=== PATIENT | female | born 1990 | race Hispanic/Latino ===

== ENCOUNTER 2020-11-07 18:12 | Observation (INO) | payer MEDICARE, OTHER ==
--- NOTE | 2020-11-07 19:21 | Emergency Department Report ---
ED Chest Pain HPI - General Chief Complaint: Chest Pain Stated Complaint: SHORTNESS OF BREATH/CHEST PAIN Time Seen by Provider: 11/07/20 18:24 Source: EMS Mode of arrival: Stretcher Limitations: No Limitations - History of Present Illness Initial Comments: 30-year-old female with history of DM2 which is diet controlled and history of cervical cancer in the past presents via EMS for chief complaint of chest pain. According to the EMS report, the patient's son noticed that the patient was repeating questions multiple times. The patient became very confused and with altered mental status and called her mother and said "I think I am going to ". The patient reported that she had chest pain and shortness of breath with nausea and dizziness. This all came on acutely about 3 hours ago. Patient also reports that she has had right calf pain. At the present time she does not have chest pain but feels slightly short of breath. She denies any fever, headache, neck pain, neck stiffness, focal weakness, sensory changes, back pain, dysuria, or any other complaints. - Related Data Allergies Allergy/AdvReac Type Severity Reaction Status Date / Time iodine Allergy Unknown Verified 11/07/20 18:48 Sulfa (Sulfonamide Allergy Unknown Verified 11/07/20 18:48 Antibiotics) Heart Score - HEART Score History: Slightly suspicious EKG: Normal Age: < 45 Risk factors: No known risk factors Troponin: < normal limit HEART Score: 0 - EKG Read Time Time EKG Completed: 19:13 EKG Read Time: 19:17 ED Review of Systems ROS: Stated complaint: SHORTNESS OF BREATH/CHEST PAIN Other details as noted in HPI Constitutional: denies: chills, fever Eyes: denies: eye pain, vision change ENT: denies: throat pain, congestion Respiratory: shortness of breath. denies: cough Cardiovascular: chest pain. denies: palpitations Gastrointestinal: denies: abdominal pain, nausea, vomiting Genitourinary: denies: dysuria, frequency Musculoskeletal: denies: back pain, joint swelling Skin: denies: rash, lesions Neurological: confusion. denies: headache, weakness, numbness, paresthesias Psychiatric: anxiety ED Past Medical Hx - Past Medical History Previous Medical History?: Yes Hx Diabetes: Yes (insulin dependent) Hx of Cancer: Yes (cervical 2009 stage 3) Hx Psychiatric Treatment: Yes (depression anxiety) - Surgical History Past Surgical History?: Yes Additional Surgical History: c section 2006, hysterectomy 2009, hernia repair 2015 - Social History Smoking Status: Former Smoker ED Physical Exam - General Limitations: No Limitations - Other Other exam information: GENERAL: Well developed and well nourished. Extremely somnolent but arousable to voice. Oriented x4. HEAD: Normocephalic. No obvious signs of trauma. ENT: Dry mucous membranes. EYES: Extraocular movements are intact. Pupils are equal round and reactive to light bilaterally NECK: Supple. Full ROM is intact. Trachea is midline. LUNGS: Tachypneic. Equal chest rise bilaterally. Coarse breath sounds throughout without discrete rales, rhonchi, or wheezes CARDIOVASCULAR: Tachycardic but with regular rhythm.. No murmurs or rubs. VASCULAR: Cap refill < 2 seconds ABDOMEN: Abdomen is soft and nondistended. There is no significant tenderness, guarding or rebound. SKIN: Skin is warm and dry NEURO: Patient is extremely somnolent but arousable to voice. She is oriented x4. director learning services II-XII grossly intact. No focal deficits. Normal motor and sensory exam throughout. Normal speech. MUSCULOSKELETAL: No obvious deformities. No significant tenderness. Normal ROM throughout. BACK/SPINE: No midline tenderness or step-offs of the C/T/L spine. There is left sided CVA tenderness. ED Course Vital Signs 11/07/20 11/07/20 11/07/20 18:38 18:43 18:45 Temperature 99.2 F Pulse Rate 83 79 Respiratory 24 28 H 26 H Rate Blood Pressure 136/87 Blood Pressure 136/87 [Left] O2 Sat by Pulse 98 98 Oximetry 11/07/20 11/07/20 11/07/20 19:00 19:30 20:00 Temperature Pulse Rate 81 102 H 87 Respiratory 14 16 22 Rate Blood Pressure 143/83 124/87 127/88 Blood Pressure [Left] O2 Sat by Pulse 99 95 Oximetry 11/07/20 11/07/20 11/07/20 20:30 21:00 21:30 Temperature Pulse Rate 92 H 96 H 96 H Respiratory 22 24 23 Rate Blood Pressure 164/91 123/76 128/78 Blood Pressure [Left] O2 Sat by Pulse 97 97 97 Oximetry 11/07/20 11/07/20 11/07/20 22:26 22:27 22:30 Temperature 97.7 F Pulse Rate 86 94 H 88 Respiratory 24 20 23 Rate Blood Pressure 130/82 130/82 Blood Pressure 128/78 [Left] O2 Sat by Pulse 96 95 94 Oximetry 11/07/20 11/07/20 11/08/20 23:00 23:30 00:00 Temperature Pulse Rate 85 98 H 87 Respiratory 24 24 24 Rate Blood Pressure 135/81 141/93 148/88 Blood Pressure [Left] O2 Sat by Pulse 94 95 94 Oximetry 11/08/20 11/08/20 11/08/20 00:30 01:00 01:30 Temperature Pulse Rate 84 111 H 103 H Respiratory 20 26 H 11 L Rate Blood Pressure 138/85 135/85 144/84 Blood Pressure [Left] O2 Sat by Pulse 95 94 94 Oximetry 11/08/20 01:48 Temperature 98 F Pulse Rate 103 H Respiratory 14 Rate Blood Pressure Blood Pressure 144/84 [Left] O2 Sat by Pulse 97 Oximetry LUC score - Luc Score Age > 65: (0) No Aspirin use within the Past 7 Days: (0) No 3 or more CAD Risk Factors: (0) No 2 or more Angina events in past 24 hrs: (0) No Known CAD with more than 50% Stenosis: (0) No Elevated Cardiac Markers: (0) No ST Deviation Greater than 0.5mm: (0) No LUC Score: 0 ED Medical Decision Making - Lab Data Result diagrams: 11/07/20 19:20 11/07/20 19:20 Lab Results 11/07/20 11/07/20 11/07/20 Range/Units 19:20 19:20 19:20 WBC 6.0 (4.5-11.0) K/mm3 RBC 4.35 (3.65-5.03) M/mm3 Hgb 13.8 (10.1-14.3) gm/dl Hct 38.7 (30.3-42.9) % MCV 89 (79-97) fl MCH 32 (28-32) pg MCHC 36 H (30-34) % RDW 13.7 (13.2-15.2) % Plt Count 252 (140-440) K/mm3 Lymph % (Auto) 29.4 (13.4-35.0) % Story % (Auto) 9.7 H (0.0-7.3) % Eos % (Auto) 1.0 (0.0-4.3) % Baso % (Auto) 0.4 (0.0-1.8) % Lymph # (Auto) 1.8 (1.2-5.4) K/mm3 Story # (Auto) 0.6 (0.0-0.8) K/mm3 Eos # (Auto) 0.1 (0.0-0.4) K/mm3 Baso # (Auto) 0.0 (0.0-0.1) K/mm3 Seg Neutrophils % 59.5 (40.0-70.0) % Seg Neutrophils # 3.6 (1.8-7.7) K/mm3 PT 13.4 (12.2-14.9) Sec. INR 0.96 (0.87-1.13) APTT 27.4 (24.2-36.6) Sec. D-Dimer 135.00 (0-234) ng/mlDDU Sodium (137-145) mmol/L Potassium (3.6-5.0) mmol/L Chloride (98-107) mmol/L Carbon Dioxide (22-30) mmol/L Anion Gap mmol/L BUN (7-17) mg/dL Creatinine (0.6-1.2) mg/dL Estimated GFR ml/min BUN/Creatinine Ratio % Glucose (65-100) mg/dL Lactic Acid (0.7-2.0) mmol/L Calcium (8.4-10.2) mg/dL Ferritin (10.0-200.0) ng/mL Total Bilirubin (0.1-1.2) mg/dL Direct Bilirubin (0-0.2) mg/dL Indirect Bilirubin mg/dL AST (5-40) units/L ALT (7-56) units/L Alkaline Phosphatase (35-129) units/L Ammonia (25-60) umol/L Lactate Dehydrogenase (91-180) units/L Troponin T (0.00-0.029) ng/mL C-Reactive Protein (0.00-1.30) mg/dL NT-Pro-B Natriuret Pep (0-450) pg/mL Total Protein (6.3-8.2) g/dL Albumin (3.9-5) g/dL Albumin/Globulin Ratio % Lipase (13-60) units/L TSH (0.270-4.200) mlU/mL HCG, Qual Negative (Negative) Urine Color (Yellow) Urine Turbidity (Clear) Urine pH (5.0-7.0) Ur Specific [place] (1.003-1.030) Urine Protein (Negative) mg/dL Urine Glucose (UA) (Negative) mg/dL Urine Ketones (Negative) mg/dL Urine Blood (Negative) Urine Nitrite (Negative) Urine Bilirubin (Negative) Urine Urobilinogen (<2.0) mg/dL Ur Leukocyte Esterase (Negative) Urine WBC (Auto) (0.0-6.0) /HPF Urine RBC (Auto) (0.0-6.0) /HPF U Epithel Cells (Auto) (0-13.0) /HPF Amorphous Crystals Salicylates (2.8-20.0) mg/dL Urine Opiates Screen Urine Methadone Screen Acetaminophen (10.0-30.0) ug/mL Ur Barbiturates Screen Ur Phencyclidine Scrn Ur Amphetamines Screen U Benzodiazepines Scrn Urine Cocaine Screen U Marijuana (THC) Screen Drugs of Abuse Note 11/07/20 11/07/20 11/07/20 Range/Units 19:20 19:20 19:20 WBC (4.5-11.0) K/mm3 RBC (3.65-5.03) M/mm3 Hgb (10.1-14.3) gm/dl Hct (30.3-42.9) % MCV (79-97) fl MCH (28-32) pg MCHC (30-34) % RDW (13.2-15.2) % Plt Count (140-440) K/mm3 Lymph % (Auto) (13.4-35.0) % Story % (Auto) (0.0-7.3) % Eos % (Auto) (0.0-4.3) % Baso % (Auto) (0.0-1.8) % Lymph # (Auto) (1.2-5.4) K/mm3 Story # (Auto) (0.0-0.8) K/mm3 Eos # (Auto) (0.0-0.4) K/mm3 Baso # (Auto) (0.0-0.1) K/mm3 Seg Neutrophils % (40.0-70.0) % Seg Neutrophils # (1.8-7.7) K/mm3 PT (12.2-14.9) Sec. INR (0.87-1.13) APTT (24.2-36.6) Sec. D-Dimer (0-234) ng/mlDDU Sodium 139 (137-145) mmol/L Potassium 3.8 (3.6-5.0) mmol/L Chloride 98.6 (98-107) mmol/L Carbon Dioxide 25 (22-30) mmol/L Anion Gap 19 mmol/L BUN 10 (7-17) mg/dL Creatinine 0.6 (0.6-1.2) mg/dL Estimated GFR > 60 ml/min BUN/Creatinine Ratio 17 % Glucose 175 H (65-100) mg/dL Lactic Acid 3.10 H* (0.7-2.0) mmol/L Calcium 10.0 (8.4-10.2) mg/dL Ferritin (10.0-200.0) ng/mL Total Bilirubin 0.30 (0.1-1.2) mg/dL Direct Bilirubin < 0.2 (0-0.2) mg/dL Indirect Bilirubin 0.1 mg/dL AST 28 (5-40) units/L ALT 42 (7-56) units/L Alkaline Phosphatase 98 (35-129) units/L Ammonia (25-60) umol/L Lactate Dehydrogenase 168 (91-180) units/L Troponin T < 0.010 (0.00-0.029) ng/mL C-Reactive Protein 0.20 (0.00-1.30) mg/dL NT-Pro-B Natriuret Pep 19.97 (0-450) pg/mL Total Protein 7.3 (6.3-8.2) g/dL Albumin 4.6 (3.9-5) g/dL Albumin/Globulin Ratio 1.7 % Lipase 37 (13-60) units/L TSH (0.270-4.200) mlU/mL HCG, Qual (Negative) Urine Color (Yellow) Urine Turbidity (Clear) Urine pH (5.0-7.0) Ur Specific [place] (1.003-1.030) Urine Protein (Negative) mg/dL Urine Glucose (UA) (Negative) mg/dL Urine Ketones (Negative) mg/dL Urine Blood (Negative) Urine Nitrite (Negative) Urine Bilirubin (Negative) Urine Urobilinogen (<2.0) mg/dL Ur Leukocyte Esterase (Negative) Urine WBC (Auto) (0.0-6.0) /HPF Urine RBC (Auto) (0.0-6.0) /HPF U Epithel Cells (Auto) (0-13.0) /HPF Amorphous Crystals Salicylates (2.8-20.0) mg/dL Urine Opiates Screen Urine Methadone Screen Acetaminophen (10.0-30.0) ug/mL Ur Barbiturates Screen Ur Phencyclidine Scrn Ur Amphetamines Screen U Benzodiazepines Scrn Urine Cocaine Screen U Marijuana (THC) Screen Drugs of Abuse Note 11/07/20 11/07/20 11/07/20 Range/Units 19:20 19:20 19:20 WBC (4.5-11.0) K/mm3 RBC (3.65-5.03) M/mm3 Hgb (10.1-14.3) gm/dl Hct (30.3-42.9) % MCV (79-97) fl MCH (28-32) pg MCHC (30-34) % RDW (13.2-15.2) % Plt Count (140-440) K/mm3 Lymph % (Auto) (13.4-35.0) % Story % (Auto) (0.0-7.3) % Eos % (Auto) (0.0-4.3) % Baso % (Auto) (0.0-1.8) % Lymph # (Auto) (1.2-5.4) K/mm3 Story # (Auto) (0.0-0.8) K/mm3 Eos # (Auto) (0.0-0.4) K/mm3 Baso # (Auto) (0.0-0.1) K/mm3 Seg Neutrophils % (40.0-70.0) % Seg Neutrophils # (1.8-7.7) K/mm3 PT (12.2-14.9) Sec. INR (0.87-1.13) APTT (24.2-36.6) Sec. D-Dimer (0-234) ng/mlDDU Sodium (137-145) mmol/L Potassium (3.6-5.0) mmol/L Chloride (98-107) mmol/L Carbon Dioxide (22-30) mmol/L Anion Gap mmol/L BUN (7-17) mg/dL Creatinine (0.6-1.2) mg/dL Estimated GFR ml/min BUN/Creatinine Ratio % Glucose (65-100) mg/dL Lactic Acid (0.7-2.0) mmol/L Calcium (8.4-10.2) mg/dL Ferritin (10.0-200.0) ng/mL Total Bilirubin (0.1-1.2) mg/dL Direct Bilirubin (0-0.2) mg/dL Indirect Bilirubin mg/dL AST (5-40) units/L ALT (7-56) units/L Alkaline Phosphatase (35-129) units/L Ammonia 27.0 (25-60) umol/L Lactate Dehydrogenase (91-180) units/L Troponin T (0.00-0.029) ng/mL C-Reactive Protein (0.00-1.30) mg/dL NT-Pro-B Natriuret Pep (0-450) pg/mL Total Protein (6.3-8.2) g/dL Albumin (3.9-5) g/dL Albumin/Globulin Ratio % Lipase (13-60) units/L TSH 0.989 (0.270-4.200) mlU/mL HCG, Qual (Negative) Urine Color (Yellow) Urine Turbidity (Clear) Urine pH (5.0-7.0) Ur Specific [place] (1.003-1.030) Urine Protein (Negative) mg/dL Urine Glucose (UA) (Negative) mg/dL Urine Ketones (Negative) mg/dL Urine Blood (Negative) Urine Nitrite (Negative) Urine Bilirubin (Negative) Urine Urobilinogen (<2.0) mg/dL Ur Leukocyte Esterase (Negative) Urine WBC (Auto) (0.0-6.0) /HPF Urine RBC (Auto) (0.0-6.0) /HPF U Epithel Cells (Auto) (0-13.0) /HPF Amorphous Crystals Salicylates < 0.3 L (2.8-20.0) mg/dL Urine Opiates Screen Urine Methadone Screen Acetaminophen (10.0-30.0) ug/mL Ur Barbiturates Screen Ur Phencyclidine Scrn Ur Amphetamines Screen U Benzodiazepines Scrn Urine Cocaine Screen U Marijuana (THC) Screen Drugs of Abuse Note 11/07/20 11/07/20 11/07/20 Range/Units 19:20 19:20 21:20 WBC (4.5-11.0) K/mm3 RBC (3.65-5.03) M/mm3 Hgb (10.1-14.3) gm/dl Hct (30.3-42.9) % MCV (79-97) fl MCH (28-32) pg MCHC (30-34) % RDW (13.2-15.2) % Plt Count (140-440) K/mm3 Lymph % (Auto) (13.4-35.0) % Story % (Auto) (0.0-7.3) % Eos % (Auto) (0.0-4.3) % Baso % (Auto) (0.0-1.8) % Lymph # (Auto) (1.2-5.4) K/mm3 Story # (Auto) (0.0-0.8) K/mm3 Eos # (Auto) (0.0-0.4) K/mm3 Baso # (Auto) (0.0-0.1) K/mm3 Seg Neutrophils % (40.0-70.0) % Seg Neutrophils # (1.8-7.7) K/mm3 PT (12.2-14.9) Sec. INR (0.87-1.13) APTT (24.2-36.6) Sec. D-Dimer (0-234) ng/mlDDU Sodium (137-145) mmol/L Potassium (3.6-5.0) mmol/L Chloride (98-107) mmol/L Carbon Dioxide (22-30) mmol/L Anion Gap mmol/L BUN (7-17) mg/dL Creatinine (0.6-1.2) mg/dL Estimated GFR ml/min BUN/Creatinine Ratio % Glucose (65-100) mg/dL Lactic Acid 3.50 H* (0.7-2.0) mmol/L Calcium (8.4-10.2) mg/dL Ferritin 132.2 (10.0-200.0) ng/mL Total Bilirubin (0.1-1.2) mg/dL Direct Bilirubin (0-0.2) mg/dL Indirect Bilirubin mg/dL AST (5-40) units/L ALT (7-56) units/L Alkaline Phosphatase (35-129) units/L Ammonia (25-60) umol/L Lactate Dehydrogenase (91-180) units/L Troponin T (0.00-0.029) ng/mL C-Reactive Protein (0.00-1.30) mg/dL NT-Pro-B Natriuret Pep (0-450) pg/mL Total Protein (6.3-8.2) g/dL Albumin (3.9-5) g/dL Albumin/Globulin Ratio % Lipase (13-60) units/L TSH (0.270-4.200) mlU/mL HCG, Qual (Negative) Urine Color (Yellow) Urine Turbidity (Clear) Urine pH (5.0-7.0) Ur Specific [place] (1.003-1.030) Urine Protein (Negative) mg/dL Urine Glucose (UA) (Negative) mg/dL Urine Ketones (Negative) mg/dL Urine Blood (Negative) Urine Nitrite (Negative) Urine Bilirubin (Negative) Urine Urobilinogen (<2.0) mg/dL Ur Leukocyte Esterase (Negative) Urine WBC (Auto) (0.0-6.0) /HPF Urine RBC (Auto) (0.0-6.0) /HPF U Epithel Cells (Auto) (0-13.0) /HPF Amorphous Crystals Salicylates (2.8-20.0) mg/dL Urine Opiates Screen Urine Methadone Screen Acetaminophen 5.0 L (10.0-30.0) ug/mL Ur Barbiturates Screen Ur Phencyclidine Scrn Ur Amphetamines Screen U Benzodiazepines Scrn Urine Cocaine Screen U Marijuana (THC) Screen Drugs of Abuse Note 11/07/20 11/07/20 11/07/20 Range/Units 21:50 Unknown Unknown WBC (4.5-11.0) K/mm3 RBC (3.65-5.03) M/mm3 Hgb (10.1-14.3) gm/dl Hct (30.3-42.9) % MCV (79-97) fl MCH (28-32) pg MCHC (30-34) % RDW (13.2-15.2) % Plt Count (140-440) K/mm3 Lymph % (Auto) (13.4-35.0) % Story % (Auto) (0.0-7.3) % Eos % (Auto) (0.0-4.3) % Baso % (Auto) (0.0-1.8) % Lymph # (Auto) (1.2-5.4) K/mm3 Story # (Auto) (0.0-0.8) K/mm3 Eos # (Auto) (0.0-0.4) K/mm3 Baso # (Auto) (0.0-0.1) K/mm3 Seg Neutrophils % (40.0-70.0) % Seg Neutrophils # (1.8-7.7) K/mm3 PT (12.2-14.9) Sec. INR (0.87-1.13) APTT (24.2-36.6) Sec. D-Dimer (0-234) ng/mlDDU Sodium (137-145) mmol/L Potassium (3.6-5.0) mmol/L Chloride (98-107) mmol/L Carbon Dioxide (22-30) mmol/L Anion Gap mmol/L BUN (7-17) mg/dL Creatinine (0.6-1.2) mg/dL Estimated GFR ml/min BUN/Creatinine Ratio % Glucose (65-100) mg/dL Lactic Acid (0.7-2.0) mmol/L Calcium (8.4-10.2) mg/dL Ferritin (10.0-200.0) ng/mL Total Bilirubin (0.1-1.2) mg/dL Direct Bilirubin (0-0.2) mg/dL Indirect Bilirubin mg/dL AST (5-40) units/L ALT (7-56) units/L Alkaline Phosphatase (35-129) units/L Ammonia (25-60) umol/L Lactate Dehydrogenase (91-180) units/L Troponin T < 0.010 (0.00-0.029) ng/mL C-Reactive Protein (0.00-1.30) mg/dL NT-Pro-B Natriuret Pep (0-450) pg/mL Total Protein (6.3-8.2) g/dL Albumin (3.9-5) g/dL Albumin/Globulin Ratio % Lipase (13-60) units/L TSH (0.270-4.200) mlU/mL HCG, Qual (Negative) Urine Color Yellow (Yellow) Urine Turbidity Slightly cloudy (Clear) Urine pH 8.0 H (5.0-7.0) Ur Specific [place] 1.020 (1.003-1.030) Urine Protein 30 mg/dl (Negative) mg/dL Urine Glucose (UA) 150 (Negative) mg/dL Urine Ketones Neg (Negative) mg/dL Urine Blood Neg (Negative) Urine Nitrite Neg (Negative) Urine Bilirubin Neg (Negative) Urine Urobilinogen < 2.0 (<2.0) mg/dL Ur Leukocyte Esterase Sm (Negative) Urine WBC (Auto) 43.0 H (0.0-6.0) /HPF Urine RBC (Auto) 7.0 (0.0-6.0) /HPF U Epithel Cells (Auto) 12.0 (0-13.0) /HPF Amorphous Crystals 1+ Salicylates (2.8-20.0) mg/dL Urine Opiates Screen Presumptive negative Urine Methadone Screen Presumptive negative Acetaminophen (10.0-30.0) ug/mL Ur Barbiturates Screen Presumptive negative Ur Phencyclidine Scrn Presumptive negative Ur Amphetamines Screen Presumptive negative U Benzodiazepines Scrn Presumptive negative Urine Cocaine Screen Presumptive negative U Marijuana (THC) Screen Presumptive positive Drugs of Abuse Note Disclamer - EKG Data -: EKG Interpreted by Md - EKG Data 11/08/20 00:06 Normal sinus rhythm. Normal axis. Normal intervals. No ectopy. No significant ST segment or T wave abnormalities. - Radiology Data CHEST 1 VIEW 11/07/2020 7:55 PM INDICATION / CLINICAL INFORMATION: Chest Pain. COMPARISON: None available. FINDINGS: SUPPORT DEVICES: None. HEART / MEDIASTINUM: No significant abnormality. LUNGS / PLEURA: No significant pulmonary or pleural abnormality. No pneumothorax. ADDITIONAL FINDINGS: No significant additional findings. IMPRESSION: 1. No acute findings. Signer Name: Dao South DO Signed: 11/07/2020 8:00 PM Workstation Name: [id number] SCAN OF THE HEAD: INDICATION / CLINICAL INFORMATION: 30 years Female; Altered Mental Status. TECHNIQUE: Routine CT head without contrast. All CT scans at this location are performed using CT dose reduction for ALARA by means of automated exposure control. COMPARISON: None. FINDINGS: BRAIN / INTRACRANIAL CONTENTS: No acute hemorrhage, mass effect, midline shift, hydrocephalus, or acute, large territorial infarct. No chronic infarct or focal atrophy. Normal brain volume and ventricular/sulcal size for age. No significant white matter abnormality. CRANIOCERVICAL JUNCTION: No significant abnormality. ORBITS: No significant abnormality of visualized orbits. SINUSES / MASTOIDS: No significant abnormality of the visualized paranasal sinuses or mastoid air cells. ADDITIONAL FINDINGS: None. IMPRESSION: No focal parenchymal lesion Signer Name: Jaye Lamar MD Signed: 11/07/2020 9:12 PM Workstation Name: [id number] CTA CHEST WITH CONTRAST INDICATION / CLINICAL INFORMATION: rule out PE, dissection, cp sob x1day [id number] 100ml. TECHNIQUE: Axial CT images were obtained through the chest after injection of IV contrast. 3 plane MIP and/or 3D reconstructions were produced. All CT scans at this location are performed using CT dose reduction for ALARA by means of automated exposure control. COMPARISON: None available. FINDINGS: PULMONARY ARTERIES: No pulmonary emboli. THORACIC AORTA: No significant abnormality. HEART: No significant abnormality. CORONARY ARTERY CALCIFICATION: None. MEDIASTINUM / CALVIN: No significant abnormality. PLEURA: No pleural effusion. No pneumothorax. LUNGS: No acute air space or interstitial disease. There is atelectasis in bilateral lung bases. ADDITIONAL FINDINGS: None. UPPER ABDOMEN: No acute findings. SKELETAL STRUCT URES: No significant osseous abnormality. IMPRESSION: 1. No CT evidence for pulmonary embolism. 2. No acute findings. Signer Name: Dao South DO Signed: 11/07/2020 9:26 PM Workstation Name: [id number] CT angio abdomen pelvis INDICATION / CLINICAL INFORMATION: Left CVA tend [id number] 100ml. TECHNIQUE: Axial coronal and reformatted images All CT scans at this location are performed using CT dose reduction for ALARA by means of automated exposure control. COMPARISON: None available. FINDINGS: Mild atelectasis in the lower lungs. The liver is enlarged with diffuse fatty infiltration. Spleen, adrenal glands, pancreas, and upper GI tract are unremarkable. Gallbladder is contracted. Bilateral kidneys appear normal. There is constipation throughout the colon. Lower thoracic aorta appears normal. Celiac branches appear normal. SMA appears normal. Bilateral renal arteries are patent. LUIS appears normal. Aortic bifurcation appears normal. Internal and external iliac arteries are patent. Proximal femoral arteries appear normal. Degenerative change is seen throughout the spine. IMPRESSION: 1. Hepatomegaly with diffuse hepatic steatosis. 2. Aorta and branches appear normal throughout the abdomen and pelvis. Signer Name: Godfrey Vyas MD Signed: 11/07/2020 9:29 PM Workstation Name: [id number] - Medical Decision Making 30-year-old female with history of diabetes and remote history of cervical cancer brought in by EMS for altered mental status and complaint of chest pain or shortness of breath. Over the past 3 hours the patient became very confused and anxious and felt nauseated and dizzy. She started complaining of shortness of breath and chest pain and then was noted to be confused asking her son questions repeatedly. She is a low-grade temp of 99.2 and she is tachypneic. Although she is extremely somnolent and appears confused, she is oriented x4 and has a nonfocal neurologic exam. Her neck is supple and she has no meningismus. Abdomen is soft and nontender. She does have left CVA tenderness. Her oxygen saturation is 94 to 96% on room air. The patient is vaccinated against the novel coronavirus. Given the atypical nature of her presentation with multiple complaints and symptoms we will perform very broad work-up including a full set of labs as well as cultures, CT of the head to assess for intracranial injury, mass or other finding to explain the patient's symptoms. We will also obtain CTA of the chest/abdomen/pelvis to assess for evidence of pulmonary embolism or aortic dissection or other intrathoracic or intra-abdominal catastrophe. We will give 1 L of IV fluids Labs have resulted and reveal no significant leukocytosis or anemia. Creatinine is within normal range and there are no significant electrolyte abnormalities. However, the patient's lactate has returned at 3.1 consistent with sepsis. Patient was given 30 mL/kg of IV fluid and broad-spectrum IV ceftriaxone and vancomycin. On repeat assessment at 10:20 PM, the patient feels much better. She is no longer somnolent. Her heart rate has improved to the 80s. Her oxygen saturation remains the same at 94 to 95% on room air. Chest x-ray is clear. CT is still pending. Urinalysis has returned and is consistent with urinary tract infection. In light of her left CVA tenderness, I suspect that she has pyelonephritis but will follow up the results of the CT scan given her atypical presentation. CT of the head reveals no acute abnormalities. CTA of the chest reveals no evidence of pulmonary embolism or pneumonia. CT of the abdomen pelvis reveals hepatomegaly with hepatic steatosis but no other acute abnormalities. The patient's repeat lactate is increased to 3.5. I will order an additional 1 L of IV fluids. I discussed the results and the diagnosis with the patient as well as the need for IV antibiotics and admission for further management. The patient expressed understanding agreement with this plan of care. I spoke with Dr. Caceres and Mag whittington PA regarding the case and they accept the patient for admission and will assume care. Critical Care Time: Yes Critical care time in (mins) excluding proc time.: 35 Critical care attestation.: If time is entered above; I have spent that time in minutes in the direct care of this critically ill patient, excluding procedure time. Critical care time was spent in the evaluation, assessment, work-up, and management of sepsis requiring broad-spectrum IV antibiotics, interpretation of chest x-ray, multiple boluses of IV fluids, and multiple reevaluations and reassessments. ED Disposition Clinical Impression: Sepsis, Pyelonephritis Disposition: DC-[id number] OP ADMIT IP TO THIS HOSP Is pt being admited?: Yes Condition: Serious Referrals: PRIMARY CARE, [Primary Care Provider] - 3-5 Days
[2020-11-07] MEDS ORDERED: diphenhydrAMINE 50 MG/ML VIAL IV ONE (19:48)
[2020-11-07] MEDS ORDERED: dexAMETHasone 4 MG/ML VIAL IV ONE (19:48)
[2020-11-07 19:56] LABS: Basophils % (Auto) 0.4 % (0.0-1.8); Eosinophils # (Auto) 0.1 K/mm3 (0.0-0.4); Hematocrit 38.7 % (30.3-42.9); Hemoglobin 13.8 gm/dl (10.1-14.3); Lymphocytes # (Auto) 1.8 K/mm3 (1.2-5.4); Lymphocytes % (Auto) 29.4 % (13.4-35.0); Mean Corpuscular HGB Conc 36 % (30-34); Mean Corpuscular Volume 89 fl (79-97); Monocytes # (Auto) 0.6 K/mm3 (0.0-0.8); Monocytes % (Auto) 9.7 % (0.0-7.3); Platelet Count 252 K/mm3 (140-440); Red Blood Count 4.35 M/mm3 (3.65-5.03); Red Cell Distribution Width 13.7 % (13.2-15.2)
[2020-11-07 20:06] LABS: INR 0.96 (0.87-1.13)
[2020-11-07 20:07] LABS: Partial Thromboplastin Time 27.4 Sec. (24.2-36.6)
[2020-11-07 20:10] LABS: Alanine Aminotransferase 42 units/L (7-56); Albumin 4.6 g/dL (3.9-5)
[2020-11-07 20:11] LABS: Blood Urea Nitrogen 10 mg/dL (7-17); Hemolysis Index 9
[2020-11-07 20:14] LABS: BUN/Creatinine Ratio 17; Bilirubin,Direct < 0.2 mg/dL (0-0.2)
[2020-11-07] MEDS ORDERED: SODIUM CHLORIDE 0.9% 1000 ML 1,000 ML IV ONE ×3 (20:25→22:33)
[2020-11-07] MEDS ORDERED: cefTRIAXone/NS 2 GM/100 ML 2 GM/100 ML BAG IV ONE (20:26)
[2020-11-07 20:48] LABS: Bilirubin,Urine NEG (Negative); Color,Urine Yellow (Yellow)
[2020-11-07 20:49] LABS: Amorphous Crystals,Urine 1+; Blood,Urine NEG (Negative); Urobilinogen,Urine < 2.0 mg/dL (<2.0)
[2020-11-07 20:52] LABS: Amphetamine Screen,Urine PRESUMPTIVE NEGATIVE; Benzodiazepines Screen,Urine PRESUMPTIVE NEGATIVE; Cannabinoid Screen,Urine PRESUMPTIVE POSITIVE; Cocaine Screen,Urine PRESUMPTIVE NEGATIVE; Methadone Screen,Urine PRESUMPTIVE NEGATIVE; Opiate Screen,Urine PRESUMPTIVE NEGATIVE
--- NOTE | 2020-11-07 21:05 | XRay Report ---
CHEST 1 VIEW 11/07/2020 7:55 PM INDICATION / CLINICAL INFORMATION: Chest Pain. COMPARISON: None available. FINDINGS: SUPPORT DEVICES: None. HEART / MEDIASTINUM: No significant abnormality. LUNGS / PLEURA: No significant pulmonary or pleural abnormality. No pneumothorax. ADDITIONAL FINDINGS: No significant additional findings. IMPRESSION: 1. No acute findings. Signer Name: Dao South DO Signed: 11/07/2020 9:00 PM Workstation Name: [id number]
[2020-11-07] MEDS ORDERED: VANCOMYCIN 1,500 MG in SODIUM CHLORIDE 0.9% 500 ML 500 ML IV ONE (21:26)
--- NOTE | 2020-11-07 22:17 | Cat Scan Report ---
NONENHANCED CT SCAN OF THE HEAD: INDICATION / CLINICAL INFORMATION: 30 years Female; Altered Mental Status. TECHNIQUE: Routine CT head without contrast. All CT scans at this location are performed using CT dos e reduction for ALARA by means of automated exposure control. COMPARISON: None. FINDINGS: BRAIN / INTRACRANIAL CONTENTS: No acute hemorrhage, mass effect, midline shift, hydrocephalus, or acu te, large territorial infarct. No chronic infarct or focal atrophy. Normal brain volume and ventricul ar/sulcal size for age. No significant white matter abnormality. CRANIOCERVICAL JUNCTION: No significant abnormality. ORBITS: No significant abnormality of visualized orbits. SINUSES / MASTOIDS: No significant abnormality of the visualized paranasal sinuses or mastoid air aimee ls. ADDITIONAL FINDINGS: None. IMPRESSION: No focal parenchymal lesion Signer Name: Jaye Lamar MD Signed: 11/07/2020 10:12 PM Workstation Name: [id number]
--- NOTE | 2020-11-07 22:30 | Cat Scan Report ---
CTA CHEST WITH CONTRAST INDICATION / CLINICAL INFORMATION: rule out PE, dissection, cp sob x1day [id number] 100ml. TECHNIQUE: Axial CT images were obtained through the chest after injection of IV contrast. 3 plane FL P and/or 3D reconstructions were produced. All CT scans at this location are performed using CT dose reduction for ALARA by means of automated exposure control. COMPARISON: None available. FINDINGS: PULMONARY ARTERIES: No pulmonary emboli. THORACIC AORTA: No significant abnormality. HEART: No significant abnormality. CORONARY ARTERY CALCIFICATION: None. MEDIASTINUM / CALVIN: No significant abnormality. PLEURA: No pleural effusion. No pneumothorax. LUNGS: No acute air space or interstitial disease. There is atelectasis in bilateral lung bases. ADDITIONAL FINDINGS: None. UPPER ABDOMEN: No acute findings. SKELETAL STRUCTURES: No significant osseous abnormality. IMPRESSION: 1. No CT evidence for pulmonary embolism. 2. No acute findings. Signer Name: Dao South DO Signed: 11/07/2020 10:26 PM Workstation Name: [id number]
--- NOTE | 2020-11-07 22:33 | Cat Scan Report ---
CT angio abdomen pelvis INDICATION / CLINICAL INFORMATION: Left CVA tend [id number] 100ml. TECHNIQUE: Axial coronal and reformatted images All CT scans at this location are performed using CT dose reduct ion for ALARA by means of automated exposure control. COMPARISON: None available. FINDINGS: Mild atelectasis in the lower lungs. The liver is enlarged with diffuse fatty infiltration. Spleen, a drenal glands, pancreas, and upper GI tract are unremarkable. Gallbladder is contracted. Bilateral ki dneys appear normal. There is constipation throughout the colon. Lower thoracic aorta appears normal. Celiac branches appear normal. SMA appears normal. Bilateral namrata al arteries are patent. LUIS appears normal. Aortic bifurcation appears normal. Internal and external iliac arteries are patent. Proximal femoral arteries appear normal. Degenerative change is seen throughout the spine. IMPRESSION: 1. Hepatomegaly with diffuse hepatic steatosis. 2. Aorta and branches appear normal throughout the abdomen and pelvis. Signer Name: Godfrey Vyas MD Signed: 11/07/2020 10:29 PM Workstation Name: [id number]
--- NOTE | 2020-11-08 00:01 | History and Physical Report ---
History of Present Illness Date of examination: 11/07/20 Date of admission: 11/07/20 Chief complaint: abdominal pain History of present illness: 30-year-old female with history of DM two which is diet controlled and history of cervical cancer in the past presents via EMS for chief complaint of chest pain. According to the EMS report, the patient's son noticed that the patient was repeating questions multiple times. The patient became very confused and with altered mental status and called her mother and said "I think I am going to ". The patient reported that she had chest pain and shortness of breath with nausea and dizziness. This all came on acutely about 3 hours ago. Patient also reports that she has had right calf pain. She denies any fever, headache, neck pain, neck stiffness, focal weakness, sensory changes, back pain, dysuria, or any other complaints. ED work-up showed WBC 6.0 hemoglobin 13.8 platelets 252. Sodium 139, potassium 3.8, lactic acid 3.1, 3.4 and 4.70 creatinine 0.6 troponin negative urinalysis positive for WBC. 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 CTA of the chest done no acute finding and no evidence of pulmonary embolism patient seen at bedside alert oriented x3. CT of the head was done no acute finding. Patient denies any additional acute distress at the time of assessment Past History Past Medical History: No medical history Past Surgical History: No surgical history, valve replacement Social history: smoking Medications and Allergies Allergies Allergy/AdvReac Type Severity Reaction Status Date / Time iodine Allergy Unknown Verified 11/07/20 18:48 Sulfa (Sulfonamide Allergy Unknown Verified 11/07/20 18:48 Antibiotics) Review of Systems Constitutional: weakness Ears, nose, mouth and throat: no epistaxis, no bleeding gums Cardiovascular: chest pain Respiratory: cough, hemoptysis Exam - Constitutional Vitals: Temp Pulse Resp BP Pulse Ox 97.7 F 94 H 20 128/78 95 11/07/20 22:27 11/07/20 22:27 11/07/20 22:27 11/07/20 22:27 11/07/20 22:27 General appearance: Present: mild distress, well-nourished - EENT Eyes: Present: PERRL ENT: hearing intact, clear oral mucosa - Neck Neck: Present: supple, normal ROM - Respiratory Respiratory effort: normal Respiratory: bilateral: CTA - Cardiovascular Heart Sounds: Present: S1 & S2. Absent: rub, click - Extremities Extremities: pulses symmetrical, No edema Peripheral Pulses: within normal limits - Abdominal General gastrointestinal: Present: soft, non-tender, non-distended, normal bowel sounds Female genitourinary: Present: normal - Integumentary Integumentary: Present: clear, warm, dry - Musculoskeletal Musculoskeletal: gait normal, strength equal bilaterally - Psychiatric Psychiatric: appropriate mood/affect, intact judgment & insight - Neurologic Neurologic: CNII-XII intact, moves all extremities - Allied Health Allied health notes reviewed: nursing HEART Score - HEART Score Troponin: Troponin T < 0.010 ng/mL (0.00-0.029) 11/07/20 21:50 Results - Labs CBC & Chem 7: 11/07/20 19:20 11/07/20 19:20 Labs: Abnormal lab results 11/07/20 11/07/20 11/07/20 Range/Units 19:20 19:20 19:20 MCHC 36 H (30-34) % [place] % (Auto) 9.7 H (0.0-7.3) % Glucose 175 H (65-100) mg/dL Lactic Acid 3.10 H* (0.7-2.0) mmol/L Urine pH (5.0-7.0) Urine WBC (Auto) (0.0-6.0) /HPF Salicylates (2.8-20.0) mg/dL Acetaminophen (10.0-30.0) ug/mL 11/07/20 11/07/20 11/07/20 Range/Units 19:20 19:20 21:20 MCHC (30-34) % [place] % (Auto) (0.0-7.3) % Glucose (65-100) mg/dL Lactic Acid 3.50 H* (0.7-2.0) mmol/L Urine pH (5.0-7.0) Urine WBC (Auto) (0.0-6.0) /HPF Salicylates < 0.3 L (2.8-20.0) mg/dL Acetaminophen 5.0 L (10.0-30.0) ug/mL 11/07/20 Range/Units Unknown MCHC (30-34) % [place] % (Auto) (0.0-7.3) % Glucose (65-100) mg/dL Lactic Acid (0.7-2.0) mmol/L Urine pH 8.0 H (5.0-7.0) Urine WBC (Auto) 43.0 H (0.0-6.0) /HPF Salicylates (2.8-20.0) mg/dL Acetaminophen (10.0-30.0) ug/mL Assessment and Plan - Patient Problems (1) Pyelonephritis Current Visit: Yes Status: Acute Plan to address problem: Patient positive for UTI Urine culture, start antibiotic IV hydration (2) Marijuana use Current Visit: Yes Status: Acute Plan to address problem: Discussed marijuana use cessation (3) Lactic acidosis Current Visit: Yes Status: Acute Plan to address problem: Lactic acidosis likely secondary to pyelonephritis Patient is started on antibiotic and IV hydration Urine culture ordered (4) DVT prophylaxis Current Visit: Yes Status: Acute Plan to address problem: Lovenox
[2020-11-08] MEDS ORDERED: ONDANSETRON 4 MG/2 ML INJ IV PRN (00:09)
[2020-11-08] MEDS ORDERED: ACETAMINOPHEN 325 MG TAB PO PRN (00:09)
[2020-11-08] MEDS ORDERED: MAGNESIUM HYDROXIDE (MOM) ORAL LIQD UDC PO PRN (00:09)
[2020-11-08] MEDS ORDERED: HYDROcodone/ACETAMINOPHEN 5-325 MG TAB PO PRN (00:09)
[2020-11-08] MEDS ORDERED: oxyCODONE /ACETAMINOPHEN 5-325MG TAB PO PRN (00:09)
[2020-11-08] MEDS ORDERED: NALOXONE 0.4 MG/1 ML INJ IV PRN (00:09)
[2020-11-08] MEDS ORDERED: SENNOSIDES 8.6 MG TAB PO PRN (00:09)
[2020-11-08] MEDS ORDERED: ALUM-MAG HYDROXIDE-SIMETHICONE 200-200-20MG/5ML ORAL LIQD 30 ML PO PRN (00:09)
[2020-11-08] MEDS ORDERED: SODIUM CHLORIDE 0.9% 1000 ML 1,000 ML IV SCH ×2 (00:15→12:45)
[2020-11-08] MEDS: ENOXAPARIN 40 MG/0.4 ML INJ SUB-Q SCH (09:18)
[2020-11-08] MEDS: cefTRIAXone/NS 1 GM/50 ML 1 GM/50 ML BAG IV SCH ×2 (09:20→09:21)
[2020-11-08] MEDS: POLYETHYLENE GLYCOL 3350 17 GM POWDER PO SCH (12:30)
[2020-11-08] MEDS: DOCUSATE SODIUM 100 MG CAP PO SCH ×3 (12:30→21:50)
--- NOTE | 2020-11-08 14:09 | Progress Note ---
Assessment and Plan --Atypical chest pain Monitor troponin, serial EKG, order for 2D echo Continue to follow clinically --Pyelonephritis Patient positive for UTI Follow urine culture, continue antibiotic IV hydration -- Marijuana use Discussed marijuana use cessation -- Lactic acidosis Lactic acidosis likely secondary to pyelonephritis Patient is started on antibiotic and IV hydration Urine culture ordered -- DVT prophylaxis Lovenox Daily clinical course: 11/08/20: Patient complains of left-sided chest tightness, monitored with serial troponin EKG. ordered for 2D echo. Continue empiric antibiotic, continue IV fluid. Monitor and continue to trend lactic acid. BMP in the morning, follow blood culture result and urine culture result. Subjective Date of service: 11/08/20 Interval history: Patient seen and examined. Medical records and medication list reviewed. No acute event overnight noted by the RN. Patient complains of chest tightness but no difficulty breathing. Patient is tolerating diet. Discussed plan of care at bedside with patient. Objective - Exam Narrative Exam: GENERAL: well-developed and well-nourished white female lying on bed appeared to be in no discomfort. HEENT: Normocephalic. Atraumatic. No conjunctival congestion or icterus. Patient has moist mucous membranes. NECK: Supple. Trachea midline. CHEST/LUNGS: Clear to auscultated bilaterally, breathing nonlabored. No wheezes crackles or rhonchi. HEART/CARDIOVASCULAR: Regular in rate and rhythm. S1 and S2 positive. ABDOMEN: Abdomen is soft, nontender. Patient has normal bowel sounds. SKIN: There is no rash. Warm and dry. NEURO: No focal motor deficit. Follows command. MUSCULOSKELETAL: No joint effusion or tenderness. EXTRIMITY: No edema, no cyanosis or clubbing. PSYCH: Cooperative. - Constitutional Vitals: Vital Signs - 12hr 11/08/20 11/08/20 11/08/20 02:10 02:20 02:26 Temperature Pulse Rate 99 H 147 H 92 H Respiratory 22 20 Rate Blood Pressure 119/63 119/63 O2 Sat by Pulse 95 96 Oximetry 11/08/20 11/08/20 11/08/20 02:30 02:40 02:50 Temperature Pulse Rate 120 H 111 H 105 H Respiratory 14 25 H 20 Rate Blood Pressure 119/63 119/63 119/63 O2 Sat by Pulse 95 94 Oximetry 11/08/20 11/08/20 11/08/20 03:00 03:10 03:20 Temperature Pulse Rate 108 H 101 H 106 H Respiratory 26 H 22 25 H Rate Blood Pressure 119/63 119/63 119/63 O2 Sat by Pulse 95 94 94 Oximetry 11/08/20 11/08/20 11/08/20 03:30 03:40 03:50 Temperature Pulse Rate 118 H 104 H 116 H Respiratory 18 28 H 29 H Rate Blood Pressure 119/63 119/63 119/63 O2 Sat by Pulse 95 94 95 Oximetry 11/08/20 11/08/20 11/08/20 04:00 04:57 06:47 Temperature 98.8 F Pulse Rate 112 H 92 H Respiratory 21 14 18 Rate Blood Pressure 119/63 112/71 O2 Sat by Pulse 96 92 Oximetry 11/08/20 07:50 Temperature Pulse Rate 84 Respiratory Rate Blood Pressure O2 Sat by Pulse Oximetry - Labs CBC & Chem 7: 11/09/20 04:20 11/09/20 04:20 Labs: Abnormal lab results 11/07/20 11/07/20 11/07/20 Range/Units 19:20 19:20 19:20 MCHC 36 H (30-34) % [place] % (Auto) 9.7 H (0.0-7.3) % Glucose 175 H (65-100) mg/dL POC Glucose (70-105) mg/dL Hemoglobin A1c (4-6) % Lactic Acid 3.10 H* (0.7-2.0) mmol/L Urine pH (5.0-7.0) Urine WBC (Auto) (0.0-6.0) /HPF Salicylates (2.8-20.0) mg/dL Acetaminophen (10.0-30.0) ug/mL 11/07/20 11/07/20 11/07/20 Range/Units 19:20 19:20 21:20 MCHC (30-34) % [place] % (Auto) (0.0-7.3) % Glucose (65-100) mg/dL POC Glucose (70-105) mg/dL Hemoglobin A1c (4-6) % Lactic Acid 3.50 H* (0.7-2.0) mmol/L Urine pH (5.0-7.0) Urine WBC (Auto) (0.0-6.0) /HPF Salicylates < 0.3 L (2.8-20.0) mg/dL Acetaminophen 5.0 L (10.0-30.0) ug/mL 11/07/20 11/07/20 11/08/20 Range/Units 23:42 Unknown 01:38 MCHC (30-34) % [place] % (Auto) (0.0-7.3) % Glucose (65-100) mg/dL POC Glucose (70-105) mg/dL Hemoglobin A1c (4-6) % Lactic Acid 3.40 H* 4.70 H* (0.7-2.0) mmol/L Urine pH 8.0 H (5.0-7.0) Urine WBC (Auto) 43.0 H (0.0-6.0) /HPF Salicylates (2.8-20.0) mg/dL Acetaminophen (10.0-30.0) ug/mL 11/08/20 11/08/20 11/08/20 Range/Units 07:20 11:41 12:31 MCHC (30-34) % [place] % (Auto) (0.0-7.3) % Glucose (65-100) mg/dL POC Glucose 270 H 244 H (70-105) mg/dL Hemoglobin A1c (4-6) % Lactic Acid 4.30 H* (0.7-2.0) mmol/L Urine pH (5.0-7.0) Urine WBC (Auto) (0.0-6.0) /HPF Salicylates (2.8-20.0) mg/dL Acetaminophen (10.0-30.0) ug/mL 11/08/20 Range/Units 13:30 MCHC (30-34) % [place] % (Auto) (0.0-7.3) % Glucose (65-100) mg/dL POC Glucose (70-105) mg/dL Hemoglobin A1c 7.2 H (4-6) % Lactic Acid (0.7-2.0) mmol/L Urine pH (5.0-7.0) Urine WBC (Auto) (0.0-6.0) /HPF Salicylates (2.8-20.0) mg/dL Acetaminophen (10.0-30.0) ug/mL HEART Score - HEART Score EKG: Normal Age: < 45 Risk factors: No known risk factors Troponin: Troponin T < 0.010 ng/mL (0.00-0.029) 11/08/20 01:38 Troponin: < normal limit
--- NOTE | 2020-11-08 14:10 | Electrocardiograph Report ---
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
[2020-11-08] MEDS: INSULIN REGULAR, HUMAN 100 UNITS/1 ML SUB-Q SCH ×2 (16:43→21:41)
[2020-11-09 04:58] LABS: Basophils % (Auto) 0.3 % (0.0-1.8); Eosinophils # (Auto) 0.1 K/mm3 (0.0-0.4); Eosinophils % (Auto) 0.8 % (0.0-4.3); Hematocrit 37.4 % (30.3-42.9); Hemoglobin 12.8 gm/dl (10.1-14.3); Lymphocytes # (Auto) 3.3 K/mm3 (1.2-5.4); Lymphocytes % (Auto) 40.1 % (13.4-35.0); Mean Corpuscular HGB Conc 34 % (30-34); Mean Corpuscular Volume 90 fl (79-97); Monocytes # (Auto) 0.7 K/mm3 (0.0-0.8); Monocytes % (Auto) 8.5 % (0.0-7.3); Platelet Count 239 K/mm3 (140-440); Red Blood Count 4.18 M/mm3 (3.65-5.03); Red Cell Distribution Width 13.9 % (13.2-15.2)
[2020-11-09 05:15] LABS: Alanine Aminotransferase 30 units/L (7-56); Albumin 4.2 g/dL (3.9-5); Blood Urea Nitrogen 15 mg/dL (7-17); Calcium 8.9 mg/dL (8.4-10.2); Hemolysis Index 11
[2020-11-09 05:16] LABS: BUN/Creatinine Ratio 30
[2020-11-09] MEDS: INSULIN REGULAR, HUMAN 100 UNITS/1 ML SUB-Q SCH ×3 (09:41→18:40)
[2020-11-09] MEDS: ENOXAPARIN 40 MG/0.4 ML INJ SUB-Q SCH (09:42)
[2020-11-09] MEDS: cefTRIAXone/NS 1 GM/50 ML 1 GM/50 ML BAG IV SCH (09:42)
[2020-11-09] MEDS: DOCUSATE SODIUM 100 MG CAP PO SCH (09:43)
[2020-11-09] MEDS: POLYETHYLENE GLYCOL 3350 17 GM POWDER PO SCH (09:43)
--- NOTE | 2020-11-09 14:23 | Discharge Summary ---
Providers - Providers Date of Admission: 11/08/20 02:13 Date of discharge: 11/09/20 Attending physician: MAYDA MORALES Primary care physician: BEEHIVE KILN CHARCOAL BURNER Hospitalization Condition: Good Pertinent studies: Chest x-ray, abdomen pelvis CT, chest CT, head CT, 2D echocardiogram Hospital course: 30-year-old female with history of DM two which is diet controlled and history of cervical cancer in the past presents via EMS for chief complaint of chest pain and report of being confused but was AAOx3 in the ER. ED work-up showed WBC 6.0 hemoglobin 13.8 platelets 252. Sodium 139, potassium 3.8, lactic acid 3.1, 3.4 and 4.70 creatinine 0.6 troponin negative urinalysis positive for WBC. Urine toxicology positive for marijuana. CTA of the chest done no acute finding and no evidence of pulmonary embolism patient seen at bedside alert oriented x3. CT of the head was done no acute finding. Patient was initiated on antibiotic, monitored with serial troponin and EKG which were normal. 2D echocardiogram showed no acute abnormalities and preserved EF. Her chest pain resolved, she was tolerating diet and willing to go home and do further work-up as outpatient. Discharge plan and management was thoroughly discussed with the patient and her mother and they both verbalized understanding. Patient will continue antibiotic therapy as outpatient. She was then discharged home in stable condition with outpatient follow-up. Disposition: DC- TO HOME OR SELFCARE Final Discharge Diagnosis (Prints w/discharge instructions): --UTI with pylonephritis. --DM type 2. -- substance abuse. --Atypical chest pain, from GERD. --obesity. --Lactic acidosis due to dehydration and pyelonephritis Time spent for discharge: 34 minutes Core Measure Documentation - Palliative Care Palliative Care/ Comfort Measures: Not Applicable - Core Measures Any of the following diagnoses?: none Exam - Physical Exam Narrative exam: GENERAL: well-developed and well-nourished white female lying on bed appeared to be in no discomfort. HEENT: Normocephalic. Atraumatic. No conjunctival congestion or icterus. Patient has moist mucous membranes. NECK: Supple. Trachea midline. CHEST/LUNGS: Clear to auscultated bilaterally, breathing nonlabored. No wheezes crackles or rhonchi. HEART/CARDIOVASCULAR: Regular in rate and rhythm. S1 and S2 positive. ABDOMEN: Abdomen is soft, nontender. Patient has normal bowel sounds. SKIN: There is no rash. Warm and dry. NEURO: No focal motor deficit. Follows command. MUSCULOSKELETAL: No joint effusion or tenderness. EXTRIMITY: No edema, no cyanosis or clubbing. PSYCH: Cooperative. - Constitutional Vitals: Temp Pulse Resp BP Pulse Ox 98.0 F 67 18 127/71 96 11/09/20 08:04 11/09/20 08:04 11/09/20 12:18 11/09/20 08:04 11/09/20 12:18 Plan Activity: advance as tolerated Weight Bearing Status: Weight Bear as Tolerated Diet: low fat, low salt Additional Instructions: Follow-up with director of field sales as outpatient Follow up with: PRIMARY MD BRENTON [Primary Care Provider] - 3-5 Days WILFREDO FRASER MD [Staff Physician] - 7 Days Prescriptions: levoFLOXacin [Levaquin] 750 mg PO QDAY #4 tablet Pantoprazole [Protonix] 40 mg PO QDAY #30 tablet
[2020-11-09 16:21] VITALS: BP 148/95
--- NOTE | 2020-11-12 10:15 | Electrocardiograph Report ---
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
== END 2020-11-09 19:44 | disposition home or self-care (01) ==
LOC: ED 18:12 → 4A 11-08 02:13
PROVIDERS: ADMIT Internal Medicine Geriatric Medicine; ATTEND Internal Medicine
DX: A41.9 Sepsis, unspecified organism (principal); Z20.822 Contact with and (suspected) exposure to COVID-19; R07.89 Other chest pain; N10 Acute pyelonephritis; E87.2 Acidosis; F12.90 Cannabis use, unspecified, uncomplicated; F32.9 Major depressive disorder, single episode, unspecified; Z79.899 Other long term (current) drug therapy; Z98.890 Other specified postprocedural states; Z90.710 Acquired absence of both cervix and uterus; Z98.891 History of uterine scar from previous surgery; Z87.891 Personal history of nicotine dependence
CPT/HCPCS: 36415; 70450; 71045; 71275; 74174; 80048; 80053; 80076; 80307; 81001; 82140; 82728; 82962; 83036; 83615; 83690; 83880; 84145; 84443; 84484; 84703; 85025; 85379; 85610; 85730; 86140; 87040; 87086; 93005; 93306; 96365; 96366; 96367; 96372; 96375; 99285; G0378; J0696; J1100; J1200; J1650; J3370; J7030; J7040; Q9967; U0003; 80320; G0480; J1815